=== PATIENT | male | born 1960 | race African-American/Black ===

== ENCOUNTER 2019-12-23 18:45 | Emergency (ER) | payer OTHER ==
[2019-12-23 19:22] LABS: #Basophils 0.1 thou/uL (0.0-0.2); #Eosinphils 0.1 thou/uL (0.0-0.7); #Lymphocytes 2.5 thou/uL (1.20-3.40); #Monocytes 0.5 thou/uL (0.11-0.59); %Basophils 1.5 % (0.0-1.0); %Eosinophils 0.8 % (0.0-10.0); %Monocytes 8.4 % (0.0-10.0); %Neutrophils 49.3 % (42.0-75.0); Hemoglobin 10.7 g/dL (14.0-18.0); Mean Corpuscular Hemoglobin 27.1 pg (27.0-31.0); Mean Corpuscular Volume 84.8 fL (78.0-98.0); Platelet Count 222 thou/uL (130-400); RBC Distribution Width 11.6 % (11.5-14.5); Red Blood Cell (RBC) Count 3.96 mill/uL (4.70-6.10); White Blood Cell (WBC) Count 6.2 thou/uL (4.8-10.8)
[2019-12-23 19:38] LABS: ALT (SGPT) 19 U/L (8-55); AST (SGOT) 31 U/L (5-34); Albumin 4.2 g/dL (3.5-5.0); Alkaline Phosphatase 49 U/L (40-110); Anion Gap 18 mmol/L (10-20); BUN (Urea Nitrogen) 46 mg/dL (8.4-25.7); Bilirubin, Total 0.6 mg/dL (0.2-1.2); Calc. Creatinine Clearance 0 mL/min (70-130); Calcium 9.6 mg/dL (7.8-10.44); Carbon Dioxide 30 mmol/L (22-29); Chloride 96 mmol/L (98-107); Estimated GFR-MDRD 8; Globulin 3.2 g/dL (2.4-3.5); Glucose 98 mg/dL (70-105); Potassium 3.9 mmol/L (3.5-5.1); Protein, Total 7.4 g/dL (6.0-8.3); Sodium 140 mmol/L (136-145)
[2019-12-23 22:46] LABS: Bilirubin Negative (Negative); Blood, Urine Negative (Negative); Clarity Clear (Clear); Glucose, Urine (Dipstick) Normal (Negative); Leukocyte 25 Leu/uL (Negative); Nitrite Negative (Negative); Protein, Urine (Dipstick) 30 mg/dL (Neg-Trace); RBC/HPF 0-3 HPF (0-3); Squamous Epithelial 0-3 HPF (0-3); Urobilinogen Normal mg/dL (Less than 2)
[2019-12-23 22:47] LABS: Bacteria/HPF 1+ HPF (None Seen)
[2019-12-23] MEDS ORDERED: cefTRIAXone\\ROCEPHIN 2 GM VIAL ONE (23:34)
== END 2019-12-24 01:11 ==
LOC: ERS 18:45
DX: N17.9 Acute kidney failure, unspecified (principal); Z79.84 Long term (current) use of oral hypoglycemic drugs
CPT/HCPCS: 36415; 80053; 81003; 81015; 85025; 87086; 93005; 96361; 96365; J0696

== ENCOUNTER 2020-08-03 22:17 | Emergency (ER) | payer MEDICARE, OTHER ==
[2020-08-03] MEDS ORDERED: Lidocaine 1% (PF) 30 ML VIAL ONE (23:53)
[2020-08-04 00:04] LABS: #Eosinphils 0.1 thou/uL (0.0-0.7); #Lymphocytes 1.7 thou/uL (1.20-3.40); #Monocytes 0.5 thou/uL (0.11-0.59); %Basophils 0.6 % (0.0-1.0); %Eosinophils 0.7 % (0.0-10.0); %Lymphocytes 23.8 % (21.0-51.0); %Monocytes 7.2 % (0.0-10.0); %Neutrophils 67.7 % (42.0-75.0); Hemoglobin 10.3 g/dL (14.0-18.0); Mean Corpuscular HGB CONC 33.4 g/dL (32.0-36.0); Mean Corpuscular Hemoglobin 28.1 pg (27.0-31.0); Mean Corpuscular Volume 84.2 fL (78.0-98.0); Mean Platelet Volume 7.2 fL (7.4-10.4); Platelet Count 189 thou/uL (130-400); RBC Distribution Width 11.4 % (11.5-14.5); Red Blood Cell (RBC) Count 3.65 mill/uL (4.70-6.10); White Blood Cell (WBC) Count 7.3 thou/uL (4.8-10.8)
[2020-08-04 00:22] LABS: ALT (SGPT) 20 U/L (8-55); AST (SGOT) 22 U/L (5-34); Albumin 3.6 g/dL (3.4-4.8); Alkaline Phosphatase 55 U/L (40-110); Anion Gap 13 mmol/L (10-20); BUN (Urea Nitrogen) 23 mg/dL (8.4-25.7); Bilirubin, Total 0.4 mg/dL (0.2-1.2); Calc. Creatinine Clearance 0 mL/min (70-130); Calcium 8.9 mg/dL (7.8-10.44); Carbon Dioxide 26 mmol/L (23-31); Chloride 106 mmol/L (98-107); Globulin 2.9 g/dL (2.4-3.5); Glucose 184 mg/dL (80-115); Potassium 4.1 mmol/L (3.5-5.1); Protein, Total 6.5 g/dL (5.8-8.1); Sodium 141 mmol/L (136-145)
[2020-08-04] MEDS ORDERED: Midazolam HCl 2 mg/2 ml Vial ONE (00:54)
--- NOTE | 2020-08-04 08:08 | CON ---
DATE OF CONSULTATION: REQUESTING PHYSICIAN: Dr. Alicia Lloyd. REASON FOR CONSULTATION: Priapism. HISTORY OF PRESENT ILLNESS: Mr. Torres is a 60-year-old male with history of erectile dysfunction. He uses Edex injections, overseen by Urology at the [facility]. The patient last used his Edex approximately 12 hours prior to presentation. The patient also takes trazodone daily. He had an erection lasting 12 hours' duration. It was associated with pain, which became severe over time. He therefore presented to the emergency department. He has never had an erection last this long with Edex. It has lasted as long as 4 hours in the past. He denies any cocaine or amphetamine use. No history of sickle cell disease. No other complaints. REVIEW OF SYSTEMS: Full 12-point review of systems was performed, is negative other than that mentioned in the HPI. PAST MEDICAL HISTORY: Hypertension, erectile dysfunction, type 2 diabetes mellitus, and chronic kidney disease. PAST SURGICAL HISTORY: None recorded. FAMILY HISTORY: Noncontributory. SOCIAL HISTORY: No alcohol, tobacco, or illicit drugs. He lives at home with his . MEDICATIONS: 1. Glipizide. 2. Metformin. 3. Atorvastatin. 4. Ferrous sulfate. 5. Trazodone. ALLERGIES: MORPHINE. PHYSICAL EXAMINATION: VITAL SIGNS: The patient is afebrile. Blood pressure 135/88, pulse 75, respirations 18, and oxygen saturation 100% on room air. GENERAL: He is awake and alert, in no apparent distress. CARDIOVASCULAR: Regular rate and rhythm. PULMONARY: Breathing unlabored. ABDOMEN: Soft, nontender/nondistended. No masses or organomegaly. No suprapubic tenderness to palpation. No CVA tenderness. GENITOURINARY: Circumcised penis with firm erection, painful to palpation. Scrotum and testes, normal. EXTREMITIES: Warm and well perfused. No edema. NEUROLOGIC: No focal deficits. LABORATORY DATA: White blood cell count 7.3, hemoglobin 10.3, hematocrit 30.7, and platelets 189. Sodium 141, potassium 4.1, chloride 106, bicarb 26, BUN 23, creatinine 3.0, and glucose 184. ASSESSMENT: A 60-year-old male with trazodone and Edex induced priapism. PLAN: I discussed the natural history and clinical implications of priapism with the patient in detail. I explained the indications for intervention. 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 After informed consent was performed, the following procedure was performed. The patient's genitalia were prepped and draped in usual sterile fashion. A time-out was performed, following which 10 mL of 1% lidocaine plain was used to perform a ring penile nerve block as well as injected in the site of corporal needle placement bilaterally. 16-gauge Angiocaths were placed in the right and left corpus cavernosum at the midshaft. Immediately, there was drainage of ischemic thick blood. We aspirated on these and we were able to aspirate out approximately 60 mL of ischemic blood. A 500 mcg/mL formulation of phenylephrine was injected into the corpus cavernosum in 1 mL increments. At this point, one of the emergency room residents, was instructed on how to aspirate and irrigate the corpora. Another emergent patient had to be attended to by Urology. I came back approximately 90 minutes later and the Angiocaths were still in place. The penis was only partially erect. The patient was no longer having any pain. I was able aspirate an additional approximate 40 mL of blood, but the blood was well oxygenated. At this point, gentle compression of the penis was then performed and this resulted in complete detumescence of the priapism. The Angiocaths were removed. A lightly compressive Coban dressing was applied. The patient tolerated the procedure well. The patient's priapism resolved. He will leave the compressive dressing in place for approximately 6 hours, at which point, he will remove it. He was instructed to clean the area with antibacterial soap twice daily. We will start empiric antibiotic therapy. Follow up with Urology in one week. Job ID: [id number]
== END 2020-08-04 04:04 | disposition home or self-care (01) ==
LOC: ERS 22:17
DX: N48.30 Priapism, unspecified (principal); E11.9 Type 2 diabetes mellitus without complications; Z79.899 Other long term (current) drug therapy
CPT/HCPCS: 36415; 80053; 85025; 96372; 99284; J2001; J2250; J2370

== ENCOUNTER 2021-04-01 09:19 | Emergency (ER) | payer MEDICARE, OTHER ==
[2021-04-01 11:03] LABS: SARS-CoV-2 NAA Rapid Test DETECTED (NotDetected)
[2021-04-01 11:05] LABS: Hemoglobin 13.3 g/dL (14.0-18.0); Mean Corpuscular HGB CONC 35.2 g/dL (32.0-36.0); Mean Corpuscular Volume 79.5 fL (78.0-98.0); Mean Platelet Volume 9.7 fL (7.4-10.4); Platelet Count 184 thou/uL (130-400); RBC Distribution Width 12.5 % (11.5-14.5); Red Blood Cell (RBC) Count 4.75 mill/uL (4.70-6.10); White Blood Cell (WBC) Count 11.8 thou/uL (4.8-10.8)
[2021-04-01 11:09] LABS: Acetaminophen Less than 6.0 mcg/mL (10.0-30.0); Alcohol Less than 10 mg/dL (Less than 10); Salicylate Less than 8.0 mg/dL (15.0-30.0)
[2021-04-01 11:15] LABS: ALT (SGPT) 129 U/L (8-55); AST (SGOT) 197 U/L (5-34); Albumin 3.9 g/dL (3.4-4.8); Alkaline Phosphatase 40 U/L (40-110); Anion Gap 24 mmol/L (10-20); BUN (Urea Nitrogen) 85 mg/dL (8.4-25.7); Bilirubin, Total 1.2 mg/dL (0.2-1.2); Calc. Creatinine Clearance 0 mL/min (70-130); Calcium 8.6 mg/dL (7.8-10.44); Chloride 102 mmol/L (98-107); Globulin 3.9 g/dL (2.4-3.5); Glucose 259 mg/dL (80-115); Potassium 4.9 mmol/L (3.5-5.1); Protein, Total 7.8 g/dL (5.8-8.1); Sodium 130 mmol/L (136-145)
[2021-04-01 11:29] LABS: Carbon Dioxide 9 mmol/L (23-31)
[2021-04-01] MEDS ORDERED: Dexamethasone 10 MG/ML VIAL ONE (11:32)
[2021-04-01 11:41] LABS: CKMB 16.7 ng/mL (0-6.6)
[2021-04-01] MEDS ORDERED: Aspirin Chewable 81 MG TAB ONE (11:54)
[2021-04-01 12:09] LABS: Actual Bicarbonate (HCO3a) 8.4 mEq/L (22-28); Analyzer IN Cardio ER; Base Excess (BEa) -13.6 mEq/L (-2.0 to +3.0); Calcium, Ionized (arterial) 1.14 mmol/L (1.12-1.30); Carboxyhemoglobin (COHb) 0.3 gm% (0.0-3.0); Hemoglobin (Hb) 12.9 g/dL (14.0-18.0); Potassium - ABG Lab 4.62 mmol/L (3.70-5.30); pH, Arterial 7.39 (7.35-7.45)
[2021-04-01 12:12] LABS: Band 18 % (5-11); Lymphocytes 10 % (21-51); MDiff Complete? YES; Monocytes 2 % (0-10); Neutrophil 70 % (42-75); Platelet Morphology Comment Appears Adequate; RBC Morphology Normal
[2021-04-01 12:16] LABS: INR-International Normal Ratio 1.2; PTT 37.6 sec (22.9-36.1); Prothrombin Time 15.4 sec (12.0-14.7)
[2021-04-01 12:50] LABS: CO2 Tension 14.2 mmHg (35.0-45.0)
[2021-04-01 12:51] LABS: O2 Tension (PaO2), arterial 58.6 mmHg (> 80.0); Puncture Site RRA
[2021-04-01 14:08] LABS: Lactic Acid 3.3 mmol/L (0.5-2.2)
== END 2021-04-01 15:27 ==
LOC: ERS 09:19
DX: U07.1 COVID-19 (principal); A41.9 Sepsis, unspecified organism; I21.4 Non-ST elevation (NSTEMI) myocardial infarction; N19 Unspecified kidney failure; E11.9 Type 2 diabetes mellitus without complications
CPT/HCPCS: 36415; 36600; 70450; 71045; 80053; 80307; 82010; 82553; 82805; 83605; 84443; 84484; 85025; 85379; 85610; 85730; 87040; 93005; J1100; U0002